=== PATIENT | female | born 1985 | race Caucasian/White ===

== ENCOUNTER 2016-05-14 01:48 | Inpatient (IN) | payer OTHER ==
--- NOTE | ~2016-05-14 | DS ---
Unit #: [id number] #: [id number] [facility]: [facility]CON [id number] [facility] [address] [place] [address] [id number] MR#: [id number] NAME: LELAND RINCON ROOM: 76 Age: 30 Sex: F Admission Date: 05/14/2016 : 1985 Discharge Date: 05/18/2016 Attending Physician: Yves Graves M.D. Primary Care Physician: Primary Care Physician No DISCHARGE SUMMARY IDENTIFYING DATA Ms. Rincon is a 30-year-old single white female, who is known to us from previous encounter, was self-referred to the hospital. DISCHARGE DIAGNOSES Psychiatric: Opioid dependence, moderate and acute withdrawals; opioid-induced mood disorder. Medical: None. Stressors: Moderate psychosocial stressors. HISTORY OF PRESENT ILLNESS Please see initial psychiatric evaluation for details. PAST PSYCHIATRIC HISTORY Please see initial psychiatric evaluation for details. PAST MEDICAL HISTORY Please see initial psychiatric evaluation for details. HOSPITAL COURSE The patient was admitted to the adult chemical dependency unit at [facility] adelaida Melendez and was oriented to the hospital environment. Routine p.r.n. medications were initiated, and she was started on the opioid detox protocol; however, during routine laboratory workup, it was picked up the patient is which was disclosed to the patient and she stated that she has been having unprotected sex with her and as such, was not surprised with the results. Meanwhile, she has been taking the medications regularly and was tolerating them fairly well and was able to show a decent and therapeutic response and as such, was wanting to go home and was willing to continue treatment on an outpatient basis and as such, it was decided that she will be discharged home and will continue further treatment on an outpatient basis. DISCHARGE MEDICATIONS None. DISCHARGE CONDITION Stable. PROGNOSIS Guarded. Dictated by... Unit #: [id number] #: [id number] Patient: LELAND RINCON Singh Preciado/jerrod TD: 05/18/2016 06:39 JOB #: [id number] DISCHARGE SUMMARY X Yves Graves MD X DISCHARGE SUMMARY
--- NOTE | ~2016-05-14 | PN ---
Unit #: [id number] #: [id number] Patient: LELAND RINCON [id number] [facility] [address] [place] [address] [id number] MR#: [id number] NAME: LELAND RINCON ROOM: 76 Age: 30 Sex: F Admission Date: 05/14/2016 : 1985 Attending Physician: Yves Graves M.D. Admitting Physician: Yves Graves M.D. Primary Care Physician: Primary Care Physician Julia SUAZO PROGRESS NOTES DATE OF SERVICE: 05/17/2016 SUBJECTIVE Ms. Rincon is a 30-year-old white female who was seen today and chart was reviewed, and case was discussed with the staff. She has been doing fairly well and appears to be calm and cooperative, and has been actually asking to be able to go home. Meanwhile, she has not shown any acute detox symptoms. MENTAL STATUS EXAMINATION Young white female who was casually dressed with fair personal hygiene, appears to be in no acute distress or discomfort. She was awake and alert on interaction with intact orientation. Her mood was anxious with a congruent affect. She denies any suicidal or homicidal ideation. Her insight and judgment remain slightly impaired. TREATMENT PLAN 1. We will continue on her current medications and treatment protocol. We will monitor her response to the medications and make further adjustments as needed. 2. We will continue to follow up. Dictated by... Singh Preciado/jerrod TD: 05/19/2016 01:26 JOB #: [id number] [facility] PROGRESS NOTES X Yves Graves MD PROGRESS NOTE
--- NOTE | ~2016-05-14 | PN ---
Unit #: [id number] #: [id number] Patient: LELAND LOGAN [id number] [facility] [address] [place] [address] [id number] MR#: [id number] NAME: LELAND LOGAN ROOM: [facility] Age: 30 Sex: F Admission Date: 05/14/2016 : 1985 Attending Physician: Yves Graves M.D. Admitting Physician: Yves Graves M.D. Primary Care Physician: Primary Care Physician Julia MUKHERJEE NOTES DATE 05/15/2016 DISCUSSION Ms. Logan is a 30-year-old white female who was seen today and chart was reviewed and case was discussed with the staff. She has been anxious, withdrawn but still having some detox symptoms. Meanwhile, she has been cooperative with treatment recommendations and has been taking medications and tolerating them fairly well with no reported side effects. MENTAL STATUS EXAMINATION Young white female who was casually dressed with fair personal hygiene and appears to be in no acute distress or discomfort. She was awake and alert on interaction with intact orientation. Her mood was anxious with congruent affect. She denies any suicidal or homicidal ideation and also denies any auditory or visual hallucinations. Her insight and judgement remains slightly impaired. TREATMENT PLAN 1. Will continue on current medications and treatment protocol. Will monitor her response to the medication and make further adjustments as needed. 2. Will continue to follow up. Dictated by... Yves Graves M.D. IAA/sonja TD: 05/16/2016 15:17 JOB #: [id number] Unit #: [id number] #: [id number] Patient: LELAND LOGAN RAEANNDAVID PROGRESS NOTES X Yves Graves MD PROGRESS NOTE
--- NOTE | ~2016-05-14 | HP ---
Unit #: [id number] #: [id number] Patient: LELAND LOGAN [id number] [facility] [address] [place] [address] [id number] I MR#: [id number] NAME: LELAND LOGAN ROOM: P176 Age: 30 Sex: F Admission Date: 05/14/2016 : 1985 Attending Physician: Yves Graves M.D. Admitting Physician: Yves Graves M.D. Primary Care Physician: Primary Care Physician No HISTORY AND PHYSICAL HISTORY OF PRESENT ILLNESS Leland is a 30-year-old female admitted on 05/14/2016 to [facility] for detox from heroin. PAST MEDICAL HISTORY None. PAST SURGICAL HISTORY Left knee replacement after an injury. ALLERGIES None. SOCIAL HISTORY He smokes 1 pack of cigarettes daily. No alcohol use. Does report daily heroin use. She is currently and living with her mother. She is unemployed and was previously enlisted in the [employer]. FAMILY HISTORY Noncontributory. REVIEW OF SYSTEMS CONSTITUTIONAL: No fever or chills. HEENT: Denies any sore throat, ear pain or runny nose. CARDIOVASCULAR: Denies chest pain, irregular heart rhythm or palpitations. CHEST: Denies shortness of breath or cough. No hemoptysis. GASTROINTESTINAL: Denies nausea, vomiting, diarrhea or chronic constipation. ENDOCRINE: Denies history of increased thirst or urination. No recent significant weight loss or gain. GENITOURINARY: Denies dysuria, frequency, or hematuria. SKIN: Denies any rashes. HEMATOLOGIC: Denies history of increased bleeding or bruising. MUSCULOSKELETAL: Denies any hot, swollen joints. No generalized muscle pain. NEUROLOGIC: Denies problems with vision or speech. No frequent, severe headaches. No numbness, tingling or weakness in any extremities. Denies loss of bladder or bowel control. CURRENT MEDICATIONS None. PHYSICAL EXAMINATION Unit #: [id number] #: [id number] Patient: LELAND LOGAN GENERAL: Alert, oriented, in no acute distress. VITAL SIGNS: Blood pressure 138/82, heart rate 114, temperature 97.4. HEIGHT: 5 feet 8. WEIGHT: 176 pounds. SKIN: Warm and dry without rash or lesion. HEENT: Normocephalic. TMs not viewed. Oral and nasal passages clear. Conjunctivae clear. PERRLA. EOMs intact. NECK: Supple without lymphadenopathy or thyromegaly. HEART: Regular rate and rhythm without murmur. LUNGS: Clear. ABDOMEN: Soft, nontender, without masses or hepatosplenomegaly. : Not done. EXTREMITIES: No evidence of cyanosis, clubbing or edema. Moves all without focal deficit. NEUROLOGICAL: Grossly within normal limits. Cranial Nerves: II: Visual argueta are intact. III, IV AND : Extraocular movements are intact. Pupils are equal, round and reactive to light. V: Facial sensation is grossly normal. VII: Facial movements and expression are normal. VIII: Auditory acuity grossly intact. IX, X: Uvula is midline. Phonation is normal. XI: Patient shrugs shoulders and turns head normally. XII: Tongue protrudes in the midline. Sensory and Motor Function: Sensory and motor sensation is grossly normal. Motor: moves all extremities well. Coordination: Gait is normal. Deep Tendon Reflexes: Intact. IMPRESSION Psychiatric admission. RECOMMENDATIONS PSYCHIATRIC: Per psychiatrist. MEDICAL: No contraindications to participate in facility's activities. MEDICAL PROGNOSIS Good. MEDICAL CONDITION Stable. Dictated by... Rehana Taylor/sonja TD: 05/14/2016 19:46 JOB #: [id number] Unit #: [id number] #: [id number] Patient: LELAND LOGAN HISTORY AND PHYSICAL X BAUDILIO TIRADO APRN X HISTORY AND PHYSICAL
--- NOTE | ~2016-05-14 | PA ---
Unit #: [id number] #: [id number] Patient: [facility]ELAND RINCON [id number] [facility] [address] [place] [address] [id number] MR#: [id number] NAME: LELAND RINCON ROOM: P176 Age: 30 Sex: F Admission Date: 05/14/2016 : 1985 Date of Assessment: 05/14/2016 Attending Physician: Yves Graves M.D. Admitting Physician: Yves Graves M.D. Primary Care Physician: Primary Care Physician No PSYCHIATRIC ASSESSMENT DATE OF SERVICE 05/14/2016. IDENTIFYING DATA Ms. Rincon is a 30-year-old single white female, who is known to us from previous encounter, was self-referred to the hospital. CHIEF COMPLAINT "I've been using 2 g of heroin and pain pills daily." HISTORY OF PRESENT ILLNESS Ms. Rincon is a 30-year-old white female, and history of substance abuse and dependence, who was self-referred to the hospital. Upon presentation, she reports that she relapsed in 02/2016 and since then, she has been using 2 g of heroin and pain pills daily and that she is tired of living a life using drugs and wants to be the mother of her 2 years old daughter that she needs to be and has not been working over 2 years due to her addiction. She reports increasing depression, anxiety, irritability, restlessness, feelings of hopelessness and helplessness, but denies any suicidal ideations, intent, or plan. SUBSTANCE ABUSE HISTORY The patient reports extensive history of substance abuse and dependence including cocaine, opioids and amphetamines and currently opioids, particularly heroin, has been her drug of choice. She reports that she has been using 2 g of heroin a day by snorting it. PAST PSYCHIATRIC HISTORY The patient has had a history of inpatient chemical dependency treatment at [facility] and review of the medical records indicate that currently she is not active in any treatment program, however, to my surprise, she goes to the [facility] and is seeing Dr. Melendez there and is getting Xanax t.i.d. despite her extensive history of addiction to opioids. PAST MEDICAL HISTORY No acute or chronic medical illnesses. ALLERGIES No known medication allergies. PERSONAL AND SOCIAL HISTORY A 30-year-old white female, who reports that she is single, unemployed, Unit #: [id number] #: [id number] Patient: LELAND RINCON and lives at home by herself and has poor social support system. MENTAL STATUS EXAMINATION Young white female, who was casually dressed with fair personal hygiene, appears to be in no acute distress or discomfort. She was awake and alert on interaction with intact orientation to time, place, and person. Her mood was anxious and depressed with a congruent affect. Her speech was slow and restricted in content. She denies any current suicidal or homicidal ideations, and also denies any auditory or visual hallucinations. Her insight and judgment remain significantly impaired. DIAGNOSTIC IMPRESSION Psychiatric: Opioid dependence, moderate and acute withdrawals; opioid-induced mood disorder. Medical: None. Stressors: Moderate psychosocial stressors. TREATMENT PLAN 1. The patient has presented with history of mood disorder and substance abuse and dependence and has been decompensating and will need inpatient hospitalization for detoxification, safety, and stabilization. We will start her on detox protocol. We will closely monitor for any worsening withdrawal symptoms. 2. Supportive therapy was provided to the patient. 3. Safe, structured, and nourishing environment will be provided. ESTIMATED LENGTH OF STAY 4 to 5 days. ABILITY TO HELP SELF Limited. WILLINGNESS TO HELP SELF The patient appears to be willing to help self. STRENGTHS 1. Communicative. 2. Cooperative. PROBLEMS 1. Chronic dysphoric symptoms. 2. Chronic chemical dependency. 3. Poor social support system. DISCHARGE CRITERIA This will be contingent upon the patient's ability to show resolution of her depression and her ability to go through detox without having any significant withdrawal symptoms and her ability to stay safe to herself, particularly after discharge from the hospital. Dictated by... Singh Preciado/jerrod TD: 05/14/2016 07:17 Unit #: [id number] #: [id number] Patient: LELAND RINCON JOB #: [id number] PSYCHIATRIC ASSESSMENT X Yves Graves MD PSYCHIATRIC ASSESSMENT
--- NOTE | ~2016-05-14 | PN ---
Unit #: [id number] #: [id number] Patient: LELAND RINCON [id number] [facility] [address] [place] [address] [id number] MR#: [id number] NAME: LELAND RINCON ROOM: [facility] Age: 30 Sex: F Admission Date: 05/14/2016 : 1985 Attending Physician: Yves Graves M.D. Admitting Physician: Yves Graves M.D. Primary Care Physician: Primary Care Physician Julia MUKHERJEE NOTES DATE 05/16/2016 DISCUSSION Ms. Rincon is a 30-year-old white female with substance abuse and mood disorder who was seen today and chart was reviewed and case was discussed with the staff. She has been anxious, withdrawn though has not shown any agitation, irritability and her beta HCG has come back to be positive and she reports that she knew that she could be but she has been having unprotected sex with her . Meanwhile, she has been compliant with treatment recommendations as she has been taking the medications regularly and has been tolerating them fairly well with no reported side effects. MENTAL STATUS EXAMINATION Young white female who was casually dressed with fair personal hygiene, appears to be in no acute distress or discomfort. She was awake and alert on interaction with intact orientation. Her mood was anxious with congruent affect. She denies any suicidal or homicidal ideations. Also, denies any auditory or visual hallucinations. Her insight and judgement remains slightly impaired. TREATMENT PLAN 1. We will continue her on her current medications and treatment protocol. We will monitor her response to the medication and make further adjustments as needed. 2. We will continue to follow up. Dictated by... Singh Preciado/angela TD: 05/19/2016 02:11 JOB #: [id number] Unit #: [id number] #: [id number] Patient: LELAND RINCON RAEANNDAVID LONNY NOTES X Yves Graves MD PROGRESS NOTE
[2016-05-14 09:28] LABS: BASOPHIL% 0.4 % (0-2.5); EOSINOPHIL# 0.3 X10e3 (0-0.7); EOSINOPHIL% 2.9 % (0.0-7.0); HEMATOCRIT 38.6 % (35.0-45.0); HEMOGLOBIN 12.8 gm/dL (12.0-16.0); LYMPHOCYTE# 2.3 X10e3 (1.0-3.5); LYMPHOCYTE% 22.4 % (17.0-45.0); MEAN CELL VOLUME 91.3 FL (83-96); MEAN CORPUSCULAR HEMOGLOBIN 30.3 PG (28-34); MEAN CORPUSCULAR HGB CONC 33.2 g/dL (30-36); MEAN PLATELET VOLUME 9.2 FL (6.5-11.5); MONOCYTE# 0.8 X10e3 (0-1.0); MONOCYTE% 7.7 % (3.0-12.0); NEUTROPHIL# 6.8 X10e3 (1.5-7.1); NEUTROPHIL% 66.6 % (40-75); PLATELET COUNT 246 X10e3 (140-420); RED BLOOD COUNT 4.23 X10e (3.90-5.30); RED CELL DISTRIBUTION WIDTH 13.2 % (11.0-15.5); WHITE BLOOD COUNT 10.2 X10e3 (4.0-10.5)
[2016-05-14 09:31] LABS: DIFF IND NO
[2016-05-14 10:02] LABS: THYROID STIMULATING HORMONE 0.55 uIU/ml (0.34-5.60)
[2016-05-14 10:09] LABS: FREE THYROXIN (T4) 0.96 ng/dL (0.58-1.64)
[2016-05-14 10:17] LABS: ALBUMIN SERUM 3.3 g/dL (3.5-5.0); ALKALINE PHOSPHATASE 39 U/L (32-92); ALT (SGPT) 9 U/L (10-40); AST (SGOT) 12 U/L (10-42); BILIRUBIN,TOTAL 0.1 mg/dL (0.2-2.0); BLOOD UREA NITROGEN 8 mg/dL (9-23); BUN/CREATININE RATIO 11.42; CALCIUM SERUM 8.9 mg/dL (8.4-10.2); CARBON DIOXIDE 23 mmol/L (22-31); CHLORIDE 106 mmol/L (100-111); CREATININE SERUM 0.7 mg/dL (0.6-1.4); GLOM FILT RATE Estimated ABOVE60 mL/min (>60); GLUCOSE FASTING 82 mg/dL (70-110); POTASSIUM 3.9 mmol/L (3.5-5.1); PROTEIN TOTAL SERUM 5.7 g/dL (6.0-8.3); SODIUM 135 mmol/L (135-145)
[2016-05-18 09:40] LABS: URINE APPEARANCE CLEAR; URINE BILIRUBIN NEG (NEG); URINE BLOOD NEG (NEG); URINE COLOR YELLOW; URINE GLUCOSE NEG (NEG); URINE KETONE NEG (NEG); URINE LEUKOCYTE ESTERASE 3+ (NEG); URINE NITRATE NEG (NEG); URINE PH 6.5 (5-8); URINE PROTEIN NEG (NEG); URINE SPECIFIC GRAVITY 1.008 (1.003-1.035); URINE UROBILINOGEN 0.2 MG/DL (NEG)
[2016-05-18 09:45] LABS: URBCS1 AUWI 0-2 /[HPF] (0-2); URINE BACTERIA AUWI 1+ (NEGATIVE)
[2016-05-18 09:54] LABS: AMPHETAMINE NEG (NEG); BARBITURATES NEG (NEG); BENZODIAZEPINES NEG (NEG); COCAINE NEG (NEG); MARIJUANA NEG (NEG); OPIATES NEG (NEG); TRICYCLIC ANTIDEPRESSANTS NEG (NEG); U METHADONE NEG (NEG)
[2016-05-18 10:25] LABS: URINE SQUAMOUS EPITHELIAL CELL OCCAS /[HPF]
== END 2016-05-18 09:51 | disposition home or self-care (01) | DRG 897 ==
LOC: P1E 01:48
PROVIDERS: Psychiatry & Neurology Psychiatry
PROC: HZ2ZZZZ Detoxification Services for Substance Abuse Treatment (ICD-10-PCS; principal; 2016-05-14)
DX: F11.23 Opioid dependence with withdrawal (principal); F11.24 Opioid dependence with opioid-induced mood disorder; Z96.652 Presence of left artificial knee joint; Z56.0 Unemployment, unspecified; F41.9 Anxiety disorder, unspecified
CPT/HCPCS: 80053; 80307; 81003; 84439; 84443; 84703; 85025; 86592